=== PATIENT | male | born 1960 | race Caucasian/White ===

== ENCOUNTER 2016-08-25 15:53 | Outpatient (RCR) | payer OTHER | END 2016-11-16 | LOC: WSOH | DX: S86.112A Strain of other muscle(s) and tendon(s) of posterior muscle group at lower leg level, left leg, initial encounter (principal); M25.562 Pain in left knee | CPT/HCPCS: 24091; A6549 ==

== ENCOUNTER 2018-11-14 14:33 | Outpatient (RCR) | payer OTHER | END 2018-11-30 | disposition home or self-care (01) | LOC: WSOH | DX: S52.502A Unspecified fracture of the lower end of left radius, initial encounter for closed fracture (principal); W01.0XXA Fall on same level from slipping, tripping and stumbling without subsequent striking against object, initial encounter; Y93.H3 Activity, building and construction; Y92.59 Other trade areas as the place of occurrence of the external cause; Y99.0 Civilian activity done for income or pay; F17.210 Nicotine dependence, cigarettes, uncomplicated; Z79.899 Other long term (current) drug therapy | CPT/HCPCS: 24091; A6549 ==